=== PATIENT | female | born 1990 | race Two or more races ===

== ENCOUNTER 2022-02-26 15:54 | Emergency (ER) | payer OTHER ==
[~2022-02-26] VITALS: Ht 157.5 cm; Wt 54.4 kg
[2022-02-26] MEDS ORDERED: ONDANSETRON 4 MG TAB.RAPDIS SL ONE (17:30)
[2022-02-26] MEDS ORDERED: MAG HYDROX/AL HYDROX/SIMETH 30 ML UDC PO ONE (17:30)
[2022-02-26] MEDS ORDERED: FAMOTIDINE (20 MG) 20 MG TABLET PO ONE (17:30)
[2022-02-26] MEDS ORDERED: MAG355OR18 PO (17:54)
[2022-02-26] MEDS ORDERED: ONDA4TAB5 PO (17:54)
[2022-02-26] MEDS ORDERED: FAMO20TA8 PO (17:54)
[2022-02-26] MEDS ORDERED: MAG HYDROX/AL HYDROX/SIMETH 30 ML UDC ONE (18:07)
[2022-02-26] MEDS ORDERED: ONDANSETRON 4 MG TAB.RAPDIS ONE (18:08)
[2022-02-26] MEDS ORDERED: FAMOTIDINE (20 MG) 20 MG TABLET ONE (18:08)
--- NOTE | 2022-02-26 18:13 | NUR ---
Patient discharged to home in stable condition. Written and verbal after care instructions given. Patient verbalizes understanding of instruction.
[2022-02-26 18:14] VITALS: BP 113/70
== END 2022-02-26 18:15 | disposition home or self-care (01) ==
LOC: ER 16:03
DX: K29.70 Gastritis, unspecified, without bleeding (principal); J45.909 Unspecified asthma, uncomplicated; Z79.899 Other long term (current) drug therapy
CPT/HCPCS: 99284; 76700; Q0162